=== PATIENT | female | born 1965 | race Caucasian/White ===

== ENCOUNTER 2018-06-06 06:14 | Inpatient (IN) | payer BC, SELFPAY ==
[2018-05-29 14:34] VITALS: BMI 33.4
[2018-06-06] VITALS (15 sets, daily range): BP systolic 91–144; BP diastolic 41–78; PULSE 61–112; RESP 11–21; TEMP 36.4–37.3; O2SAT 94–100; BMI 33.4
--- NOTE | 2018-06-06 | DI.RAD.S_ITS ---
PROCEDURE: XR LUMBAR SPINE 2-3V INDICATIONS: L4-5, L5-S1 TLIF TECHNIQUE: 2 views of the lumbar spine were acquired. COMPARISON: [facility], MR, MR LUMBAR SPINE WO CON, 05/14/2016, 14:37. FINDINGS: There is discectomy and posterior fusion at L4-L5 and L5-S1. Disc prostheses are noted. Pedicular screws and fusion rods are in appropriate position. IMPRESSION: Discectomy and posterior fusion at L4-L5 and L5-S1. Dictated by: Kaylee Morrison M.D. on 06/06/2018 at 13:42 Approved by: Kaylee Morrison M.D. on 06/06/2018 at 13:43
[2018-06-06] MEDS: LACTATED RINGERS 1,000 ML 42 ML IV ×2 (07:00→11:37)
--- NOTE | 2018-06-06 07:30 | PM.HP.1 ---
History of Present Illness Date Patient Seen: 06/06/18 Time Patient Seen: 07:31 Chief complaint: [id number] Narrative: 53-year-old female with low back pain and pain and numbness going down both legs more pain shooting down the back of the left leg as well as weakness in the left leg going up and down stairs. More tingling and feeling like spiders going down the right leg. She has had physical therapy and epidural injections with only temporary relief. Pain is sharp and stabbing. Patient History Medical History Arthritis (Acute) Cervical vertebral fusion (Acute) Cystocele (Acute) DDD (degenerative disc disease) (Acute) Hyperlipidemia (Acute) Lumbar spinal stenosis (Acute) Numbness (Acute) Obesity (Acute) Osteoarthritis (Acute) Vitamin D deficiency (Acute) Surgical History H/O cervical discectomy (Acute) H/O: (Acute) History of ankle surgery (Acute) History of appendectomy (Acute) History of bilateral tubal ligation (Acute) History of shoulder surgery (Acute) History of tonsillectomy (Acute) S/P epidural steroid injection (Acute) Family & Social History Family History: Reviewed 06/06/18 by Victor M Lazaro MD Social History: household members spouse Prior Living Arrangements Apartment/Condo Safety & Behavioral: Feels Safe in Current Yes Environment Been Physically Hurt or No Threatened By a Person Suicidal Ideation Description None Suicide Plan Description No Plan Tobacco & Substance use: Smoking Status Never smoker alcohol intake current alcohol intake frequency other Substance Use Type does not use Meds Home Medications Medication Instructions Recorded Confirmed Type MULTIVITAMIN (Multivitamin 1 cap PO EVERY DAY #0 06/18/10 05/29/18 History -) omega 8-flv-eqq-fish oil [Fish Oil] 2,000 mg PO DAILY #0 06/18/10 05/29/18 History [TUMERIC] 1 cap PO #0 05/13/17 History qebhmon-yidovuarcpnio-joxjbjqd 3 tab PO Q4-6H PRN 05/29/18 05/29/18 History [Excedrin Migraine] Allergies Allergy/AdvReac Type Severity Reaction Status Date / Time No Known Drug Allergies Allergy Unknown Unverified 05/29/18 15:04 [NO KNOWN DRUG ALLERGIES] dexamethasone AdvReac Severe Violent Verified 05/29/18 15:04 vomiting METAL Allergy Unknown UNSURE Uncoded 05/29/18 15:04 WHICH METAL,I CAN'T WEAR [place] Review of Systems Constitutional Constitutional: Denies chills and Denies fever(s) Cardiovascular Cardiovascular: Denies chest pain Respiratory Respiratory: Denies cough Exam Vital Signs (past 8 hours): - 06/06/18 07:01 Temperature 98.7 F Pulse Rate 70 Respiratory Rate 16 Blood Pressure 144/78 H Pulse Oximetry 98 Oxygen Delivery Method Room Air Const Orientation: alert and oriented x3 Resp Auscultation: clear to auscultation bilaterally Cardio Rate: regular rate Rhythm: regular rhythm Back/Spine/Pelvis Other: Tear across the lumbosacral junction and the left gluteals. 45? flexion, 10? of extension. 5/5 motor both lower extremities except for 4/5 left anterior tibialis and EHL. Decreased sensation lateral left leg and right foot Objective Imaging MRI - lumbar: My impression: MRI from 11/03/2017 shows central disc bulge with mild central stenosis at L1-2 with moderate bilateral foraminal narrowing. Mild right foraminal narrowing at L2-3. Mild bilateral foraminal narrowing L3-4. Mild central moderate bilateral foraminal narrowing L4-5. Moderate to severe bilateral foraminal narrowing L5-S1. Assessment & Plan Plan: Assessment/Plan Narrative: She has lumbar stenosis. She has failed conservative management and we are proceeding with surgical intervention. This will be a L4-5 and L5-S1 laminectomy to decompress her stenosis. Due to her foraminal stenosis, she will require facetectomies and fusion to stabilize afterwards we will do this with a TLIF at both levels. Risks and benefits were again discussed. Plan for surgery today.
--- NOTE | 2018-06-06 07:35 | P.HP_ITS ---
History of Present Illness Date Patient Seen: 06/06/18 Time Patient Seen: 07:31 Chief complaint: [id number] Narrative: 53-year-old female with low back pain and pain and numbness going down both legs more pain shooting down the back of the left leg as well as weakness in the left leg going up and down stairs. More tingling and feeling like spiders going down the right leg. She has had physical therapy and epidural injections with only temporary relief. Pain is sharp and stabbing. Patient History Medical History Arthritis (Acute) Cervical vertebral fusion (Acute) Cystocele (Acute) DDD (degenerative disc disease) (Acute) Hyperlipidemia (Acute) Lumbar spinal stenosis (Acute) Numbness (Acute) Obesity (Acute) Osteoarthritis (Acute) Vitamin D deficiency (Acute) Surgical History H/O cervical discectomy (Acute) H/O: (Acute) History of ankle surgery (Acute) History of appendectomy (Acute) History of bilateral tubal ligation (Acute) History of shoulder surgery (Acute) History of tonsillectomy (Acute) S/P epidural steroid injection (Acute) Family & Social History Family History: Reviewed 06/06/18 by Victor M Lazaro MD Social History: household members spouse Prior Living Arrangements Apartment/Condo Safety & Behavioral: Feels Safe in Current Yes Environment Been Physically Hurt or No Threatened By a Person Suicidal Ideation Description None Suicide Plan Description No Plan Tobacco & Substance use: Smoking Status Never smoker alcohol intake current alcohol intake frequency other Substance Use Type does not use Meds Home Medications Medication Instructions Recorded Confirmed Type MULTIVITAMIN (Multivitamin 1 cap PO EVERY DAY #0 06/18/10 05/29/18 History -) omega 5-vkw-rka-fish oil [Fish Oil] 2,000 mg PO DAILY #0 06/18/10 05/29/18 History [TUMERIC] 1 cap PO #0 05/13/17 History kpthmaf-thskvarqdmosv-ttczczbu 3 tab PO Q4-6H PRN 05/29/18 05/29/18 History [Excedrin Migraine] Allergies Allergy/AdvReac Type Severity Reaction Status Date / Time No Known Drug Allergies Allergy Unknown Unverified 05/29/18 15:04 [NO KNOWN DRUG ALLERGIES] dexamethasone AdvReac Severe Violent Verified 05/29/18 15:04 vomiting METAL Allergy Unknown UNSURE Uncoded 05/29/18 15:04 WHICH METAL,I CAN'T WEAR [place] Review of Systems Constitutional Constitutional: Denies chills and Denies fever(s) Cardiovascular Cardiovascular: Denies chest pain Respiratory Respiratory: Denies cough Exam Vital Signs (past 8 hours): - 06/06/18 07:01 Temperature 98.7 F Pulse Rate 70 Respiratory Rate 16 Blood Pressure 144/78 H Pulse Oximetry 98 Oxygen Delivery Method Room Air Const Orientation: alert and oriented x3 Resp Auscultation: clear to auscultation bilaterally Cardio Rate: regular rate Rhythm: regular rhythm Back/Spine/Pelvis Other: Tear across the lumbosacral junction and the left gluteals. 45? flexion , 10? of extension. 5/5 motor both lower extremities except for 4/5 left anterior tibialis and EHL. Decreased sensation lateral left leg and right foot Objective Imaging MRI - lumbar: My impression: MRI from 11/03/2017 shows central disc bulge with mild central stenosis at L1-2 with moderate bilateral foraminal narrowing. Mild right foraminal narrowing at L2-3. Mild bilateral foraminal narrowing L3-4. Mild central moderate bilateral foraminal narrowing L4-5. Moderate to severe bilateral foraminal narrowing L5-S1. Assessment & Plan Plan: Assessment/Plan Narrative: She has lumbar stenosis. She has failed conservative management and we are proceeding with surgical intervention. This will be a L4-5 and L5-S1 laminectomy to decompress her stenosis. Due to her foraminal stenosis, she will require facetectomies and fusion to stabilize afterwards we will do this with a TLIF at both levels. Risks and benefits were again discussed. Plan for surgery today.
--- NOTE | 2018-06-06 07:35 | PM.PREOP ---
Pre-operative Note Interval Note History & Physical reviewed/Exam performed by Physician: Yes Changes to H&P: No
[2018-06-06] MEDS: CEFAZOLIN 2 GM/100 ML FROZ.PIGGY IV ×2 (07:46→16:45)
--- NOTE | 2018-06-06 08:30 | SUR.OPER ---
Prone on spine table, head in foam head support, padded chest and pelvic supports, gel pad at knees, lower legs supported by pillows; nipples, genitalia and toes free of pressure, arms secured on foam padded arm boards at <90 degrees abduction. Tape over blanket at thigh secured to table.
[2018-06-06] MEDS: THROMBIN (BOVINE) 5,000 UNIT VIAL 5000 UNIT TOP (08:51)
[2018-06-06] MEDS: SODIUM CHLORIDE 0.9% 1,000 ML, GENTAMICIN 80 MG IRR ×2 (08:52→08:55)
[2018-06-06] MEDS: VANCOMYCIN 1,000 MG VIAL 1000 MG TOP (09:05)
[2018-06-06] MEDS: BUPIVACAINE 0.5% (PF) 4 ML, MORPHINE-PF 4 MG, BUTORPHANOL 1 MG, fentaNYL 100 MCG INJ (09:06)
--- NOTE | 2018-06-06 11:19 | PM.OP.1 ---
Operative Date/Time/Diagnoses Date of procedure: 06/06/18 Time of procedure: 11:19 Pre-op diagnosis: Lumbar stenosis with radiculopathy Post-op diagnosis: same Procedure & Clinicians Procedure: L4-5 TLIF (post/post innerbody fusion) with cage L5S1 TLIF (post/post innerbody fusion) with cage L4-L5 S1 screws Iliac crest bone graft aspirate L4-5 laminectomy L5-S1 laminectomy Use of microscope Placement of epidural catheter Same procedure as scheduled: Yes Indications: [age] year old female with intractable pain from stenosis. They had failed conservative management and requested operative intervention. Risks and benefits of surgery were discussed and appropriate consents were obtained. Surgeon: Victor M Lazaro Rolling Machine Tender: Susy Johnson Anesthesia Type: General Operative Notes Findings: None Closure Type: primary Specimen(s): none sent Implants & Drains: Nuvasive MAS Reline screws Globus Rise cage Applied: catheter Estimated Blood Loss (mL): 50 Blood products transfused: none Procedure in detail: The patient was brought to the operating room and intubated on the table. A time-out was performed. They were then rolled over to the well-padded José Luis table in the prone position. Preoperative antibiotics were given. The back was prepped and draped in the standard sterile fashion. Using fluoroscopy, a 5 cm longitudinal incision was made to the left of the midline. We used Bovie to come down to and split the lumbodorsal fascia. Using fluoroscopy and monitoring, we then percutaneously placed Jamshidi needles down the pedicles of L4, L5, and S1 on the left side. These were changed out to guidewires and then we tapped and then placed the NuVasive MAS Precept screw shanks. We then opened up the retractors and used Bovie to clear up the posterolateral gutter as well as medially along the lamina to the spinous processes. A bur was used to decorticate the transverse processes. We brought in the microscope. Using a combination of bur and Kerrison rongeurs, a laminectomy was performed from the left side. We cleared over past the midline and carefully depressed the dura until we were able to decompress the opposite side. We cleared out the neural foramen which was exceedingly tight we had to perform a facetectomy to get this adequately decompressed. This completed the laminectomy at L5-S1. We then began the TLIF prep. A complete facetectomy was performed on this side at L5-S1. We carefully cleaned up the remainder of the foramen until we could easily retract the exiting root as well as clearing medially below the dura and expose the disc space. The disc was prepped with bipolar and then an annulotomy was performed. We performed a diskectomy using a combination of paddles, patricia, pituitaries, and curettes. We then filled the disc space with Osteocel bone graft. We then placed the 7 x 30 mm globus Rise cage under fluoroscopy and then filled this in with more bone graft. This completed the posterior interbody fusion portion of the TLIF at L5-S1. We then moved up to L4-5. Again a laminectomy was performed at this level to decompress the spinal canal and the foramen. We had to do a facetectomy to remove the large facet overgrowth compressing the exiting nerve root. There was a large facet cyst here that was adherent that had to be carefully retracted off adding much more complexity and time for the decompression, making the laminectomy separate and distinct from the approach for the fusion. Once the decompression was done at this level, we carefully retracted the dura medially. A scalpel used to perform an annulotomy. We used paddles, Patricia, curettes, and pituitaries to perform a complete diskectomy at L4-5. This was packed with bone graft and then an 8 x 30 mm globus Rise cage was placed and expanded under fluoroscopy. More bone graft was backfilled. This completed the posterior interbody portion of the fusion at L4-5. We then placed the screw heads, main, and locked down the set screws. The wound was copiously irrigated. A small stab incision was made over the PSIS. We used a Jamshidi needle to aspirate several mL of bone marrow from the pelvis. This was mixed with the remaining Osteocell and combined with all of the locally harvested bone graft and placed in the posterolateral gutter for the posterior fusion of the TLIF at L4-5 and L5-S1. An epidural catheter was then placed in the spinal canal by carefully depressing the dura and advancing it 6 cm cephalad under the remaining lamina without resistance. The muscle fascia was closed. The catheter was then injected with a solution containing 4 mL of 0.5% Marcaine, 1 mg Stadol, 4 mg Duramorph, and 100 mcg of fentanyl. This was injected without resistance and the catheter was pulled. We then went to the opposite side. Again using fluoroscopy, a 5 cm incision was made and Bovie was used to come down to split the fascia. Using neural monitoring and fluoroscopy, Jamshidi needles were advanced down the pedicles of L4, L5, and S1 on the right side. These were switched over guidewires, tapped, and screws placed. We then placed a main and locked the set screws on this side. The wound was irrigated. The fascia was closed. Vancomycin powder was placed in the wounds. The superficial and skin were closed. A sterile dressing was placed. The patient was then rolled over extubated and brought to recovery room without complications. Complications: none Condition: stable Disposition: PACU Plan for aftercare: Inpatient. Up with therapy.
[2018-06-06] MEDS: fentaNYL 100 MCG/2 ML INJ 50 MCG IV (11:53)
--- NOTE | 2018-06-06 12:02 | SUR.PHASEI ---
stable pacu stay, medicated with fentanyl for pain. no nausea.
--- NOTE | 2018-06-06 12:15 | SUR.PHASEI ---
pt stated no need for further pain meds, pt transfered to [id number] under the care of rosalind.
--- NOTE | 2018-06-06 12:39 | SUR.OPER ---
Louisa sher on upper body on high
[2018-06-06] MEDS: LACTATED RINGERS 1,000 ML 125 ML IV ×2 (13:14→21:52)
[2018-06-06] MEDS: METOCLOPRAMIDE 10 MG/2 ML INJ IV (14:15)
--- NOTE | 2018-06-06 14:45 | PT.IPTN ---
Current Diagnoses Spinal stenosis, lumbar region with neurogenic claudication (06/06/18) Surgery Performed Operation Date: 06/06/18 07:45 Actual Procedures p L4-5, L5-S1 Laminectomy & Instru. fusion w/bone graft - Victor M Lazaro MD Physical Therapy Treatment Note M3 PT-IP Subjective Start: 06/06/18 14:44 Freq: NEEDED Status: Active Protocol: Document 06/06/18 14:45 AB (Rec: 06/06/18 14:45 AB [id number]) Subjective Physical Therapy Visit Type Notes checked on pt but pt stated that she is trying to keep her nausea under control first and not ready to move with therapy at this time. pt agreed for PT to check on pt later on today.
--- NOTE | 2018-06-06 17:01 | PC.NURSE ---
Addendum entered by Lorie Han R.N. 06/06/18 22:17: Pt resting quietly through evening. Stable post op course. Denies discomfort Alfaro cath patent clear yellow urine. Call light w/in reach, bed alarm on for pt safety. Continue w/plan of care. Original Note: Pt resting quietly at this time. Denies discomfort at this time. Lungs clear, SpO2 98% RA. Dsg to back CDI. Alfaro cath paten clear urine. Call light w/in reach, bed alarm on for pt safety.
[2018-06-06] MEDS: DOCUSATE 100 MG CAPSULE PO (21:52)
[2018-06-06] MEDS: CELECOXIB 200 MG CAPSULE PO (21:52)
[2018-06-06] MEDS: GABAPENTIN 300 MG CAPSULE PO (21:53)
[2018-06-06] MEDS: SENNOSIDES 8.6 MG TABLET 17.2 MG PO (21:53)
[2018-06-06] MEDS: HYDROCODONE/ACET 5/325 TABLET 1 TAB PO (23:59)
[2018-06-07] MEDS: CEFAZOLIN 2 GM/100 ML FROZ.PIGGY IV
[2018-06-07 05:00] VITALS: BP 105/59; PULSE 72; RESP 16; TEMP 37.1; O2SAT 98
[2018-06-07] MEDS: HYDROCODONE/ACET 5/325 TABLET 1 TAB PO ×3 (05:53→23:30)
[2018-06-07 06:46] LABS: Hematocrit 36.7 % (36-46); Hemoglobin 12.4 g/dL (12.0-16.0)
--- NOTE | 2018-06-07 07:39 | PM.PNPO.1 ---
Subjective Date Patient Seen: 06/07/18 Time Patient Seen: 07:39 Interval history: Hospital day 2, postop day 1 following L4-5, L5-S1 laminectomy, TLIF, cage, posterior screw fixation by Dr. Lazaro. Patient states she has not had much rest. States having sharp pain firing down her leg when she lays on her back. Leg numbness has improved. She has not been out of bed yet. No physical therapy yet. Alfaro catheter in place. She and her live in [place]. They have rented a home on [facility] for postop period. Patient states she has had GI upset taking dexamethasone but she is able to tolerate prednisone. Exam Vital Signs (past 8 hours): - 06/07/18 05:00 Temperature 98.8 F Pulse Rate 72 Respiratory Rate 16 Blood Pressure 105/59 L Pulse Oximetry 98 Oxygen Delivery Method Room Air Oxygen Flow Rate 0 Narrative Exam Narrative: Alert, oriented no acute distress lying in bed on her right side. Back. Dressing to lumbar area is dry without drainage or inflammation. Legs. No calf pain or swelling. Pulses symmetrical. Good sensation to lower legs symmetrical. Good strength on foot dorsiflexion plantar flexion. Objective Labs Result Diagrams: 06/07/18 06:25 Labs: Laboratory Results - last 24 hr 06/07/18 06:25 Hgb 12.4 Hct 36.7 Assessment & Plan Post-op Postoperative Procedures Operation Date: 06/06/18 07:45 Actual Procedures Side Surgeon p L4-5, L5-S1 Laminectomy & Instru. fusion w/bone graft Victor M Lazaro MD Plan: Will start patient on prednisone 40 mg this morning and then 20 mg b.i.d. starting at 1800 today. We will see if this helps with her back and leg symptoms. Observe for improvement in function. DC Alfaro catheter when she is more active. Anticipate discharge to home in the next 1-2 days if stable. Quality VTE Deep Vein Thrombosis/Pulmonary Embolism Present on Admission: No
--- NOTE | 2018-06-07 07:43 | P.PN_ITS ---
Subjective Date Patient Seen: 06/07/18 Time Patient Seen: 07:39 Interval history: Hospital day 2, postop day 1 following L4-5, L5-S1 laminectomy , TLIF, cage, posterior screw fixation by Dr. Lazaro. Patient states she has not had much rest. States having sharp pain firing down her leg when she lays on her back. Leg numbness has improved. She has not been out of bed yet. No physical therapy yet. Alfaro catheter in place. She and her live in [place]. They have rented a home on [facility] for postop period. Patient states she has had GI upset taking dexamethasone but she is able to tolerate prednisone. Exam Vital Signs (past 8 hours): - 06/07/18 05:00 Temperature 98.8 F Pulse Rate 72 Respiratory Rate 16 Blood Pressure 105/59 L Pulse Oximetry 98 Oxygen Delivery Method Room Air Oxygen Flow Rate 0 Narrative Exam Narrative: Alert, oriented no acute distress lying in bed on her right side. Back. Dressing to lumbar area is dry without drainage or inflammation. Legs. No calf pain or swelling. Pulses symmetrical. Good sensation to lower legs symmetrical. Good strength on foot dorsiflexion plantar flexion. Objective Labs Result Diagrams: 06/07/18 06:25 Labs: Laboratory Results - last 24 hr 06/07/18 06:25 Hgb 12.4 Hct 36.7 Assessment & Plan Post-op Postoperative Procedures Operation Date: 06/06/18 07:45 Actual Procedures Side Surgeon p L4-5, L5-S1 Laminectomy & Instru. fusion w/bone graft Victor M Lazaro MD Plan: Will start patient on prednisone 40 mg this morning and then 20 mg b.i.d. starting at 1800 today. We will see if this helps with her back and leg symptoms. Observe for improvement in function. DC Alfaro catheter when she is more active. Anticipate discharge to home in the next 1-2 days if stable. Quality VTE Deep Vein Thrombosis/Pulmonary Embolism Present on Admission: No
[2018-06-07 08:00] VITALS: BP 113/58; PULSE 75; RESP 16; TEMP 36.8; O2SAT 93
[2018-06-07] MEDS: METOCLOPRAMIDE 10 MG/2 ML INJ IV (09:03)
[2018-06-07] MEDS: KETOROLAC 30 MG/ML VIAL IV (09:03)
--- NOTE | 2018-06-07 09:40 | PT.IIE ---
Current Diagnoses Spinal stenosis, lumbar region with neurogenic claudication (06/06/18) Surgery Performed Operation Date: 06/06/18 07:45 Actual Procedures p L4-5, L5-S1 Laminectomy & Instru. fusion w/bone graft - Victor M Lazaro MD Surgical History (Last Reviewed 06/06/18 @ 07:32 by Victor M Lazaro MD) H/O cervical discectomy (Acute) H/O: (Acute) History of ankle surgery (Acute) History of appendectomy (Acute) History of bilateral tubal ligation (Acute) History of shoulder surgery (Acute) History of tonsillectomy (Acute) S/P epidural steroid injection (Acute) Medical History (Last Reviewed 06/06/18 @ 13:58 by Monse Larios) Arthritis (Acute) Cervical vertebral fusion (Acute) Cystocele (Acute) DDD (degenerative disc disease) (Acute) Hyperlipidemia (Acute) Lumbar spinal stenosis (Acute) Numbness (Acute) Obesity (Acute) Osteoarthritis (Acute) Vitamin D deficiency (Acute) Physical Therapy Inpatient Evaluation/Re-Eval M1 PT/OT-IP Prior Functional Status Start: 06/06/18 14:44 Freq: NEEDED Status: Active Protocol: Document 06/07/18 09:40 AB (Rec: 06/07/18 12:21 AB [id number]) Medical Review Prior Functional Status Medical History Reviewed Yes Communication able to make need known Mobility and Gait stated that she is independent with all mobilities and ambulation without AD Social History Household Members spouse Living Arrangements Apartment/Condo Number of Floors (Floors) One Floor Number of Stairs To Enter/Railing? pt lives in [place] and will stay on a rented house in [facility] upon D/C for ~ 21/2 weeks. Home info regarding rented house. 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 spouse works as well but has taken days off to assist pt. pt has no AD/equipment M2 PT-IP Current Condition Start: 06/06/18 14:44 Freq: NEEDED Status: Active Protocol: Document 06/07/18 09:40 AB (Rec: 06/07/18 12:21 AB [id number]) Physical Therapy Current Condition Current Condition Evaluation Date 06/07/18 Treatment Diagnosis s/p L4-5, L5S1 TLIF/lami; difficulties in walking Onset Date 06/06/18 Precautions Lumbar Precautions Log Roll No Twisting Limit Bending Lifting Restriction of 10 lbs Gait Belt above Incisional Area M3 PT-IP Subjective Start: 06/06/18 14:44 Freq: NEEDED Status: Active Protocol: Document 06/07/18 09:40 AB (Rec: 06/07/18 12:21 AB [id number]) Subjective Physical Therapy Visit Type Type Initial Evaluation Visit Start Time 09:40 Visit Stop Time 10:07 Total Visit Minutes 27 Number of ENGINE ASSEMBLY SUPERVISOR Visits 0 Physical Therapy Visit Comments Patient Comments pt agreeable to get out of bed Therapy Pain Assessment Pain When Pain Assessed At Rest Pain Present Pain Present Pain Reported Location Back Intensity 7 Scale Used Numeric (1 - 10) Pain Management Techniques Re-positioning Timing of Activity with Medications M4 PT-IP Mobility and Gait Start: 06/06/18 14:44 Freq: NEEDED Status: Active Protocol: Document 06/07/18 09:40 AB (Rec: 06/07/18 12:21 AB [id number]) PT-Bed Mobility Assessment Rolling Type of Rolling Log Rolling Level of Assist Standby Assistance Supine to Sit Supine to Sit Standby Assistance 1 Person Assistance Scooting Scooting to Edge of Bed Standby Assistance PT-Transfer Assessment Sit to and From Stand Sit to and from Stand Contact Guard Assistance 1 Person Assistance Use of Upper Extremities Equipment Transfer Assistive Device Bed Rail Front Wheeled Walker Orthotic/Prosthetic Devices or Brace: No Transfers Transfer Destination Toilet Transfer Technique pt ambulated to the toilet using FWW Transfer Ability Level of Assist Contact Guard Assistance Comments Mobility Comments BP supine: 120/55 sitting on EOB: 129/56 after ambulation: 136/70 Gait Assessment Gait Gait Assistance Required: Contact Guard Assist Distance (Feet) 40 Able to Maintain Weight Bearing Status Yes During Gait Assistive Devices Assistive Device Gait Belt Front Wheeled Walker Orthotic/Prosthetic Devices or Brace: No Gait Deviations General Gait Pattern Decreased Stride Length Decreased Feet Clearance Factors Limiting Gait Function Factors Limiting Gait Function Decreased Activity Tolerance Decreased Strength Limited Range of Motion Pain Poor Balance Comments Gait Comments Attempted ambulation in hallway but pt got nauseated with (+) emesis after ambulating for ~ 40ft using FWW CGA requested to use the toilet and ambulated to the toilet using FWW CGA. BP sittin/70 PT-Balance Assessment Sitting Balance and Reactions Static Sitting Balance Ability Good Dynamic Sitting Balance Ability Good Standing Balance and Reactions Static Standing Balance Ability Fair Dynamic Standing Balance Ability Fair Device Used FWW M5 PT-IP Objective Assessments Start: 06/06/18 14:44 Freq: NEEDED Status: Active Protocol: Document 06/07/18 09:40 AB (Rec: 06/07/18 12:21 AB [id number]) Orientation Orientation/Cognition Level of Alertness Alert Orientation Name Age Birthday Month Date Year Day of Week Place Situation Language Function Ability No Deficits Noted Safety Awareness Understands Safety Issues Memory Description No Deficits Noted Gross Range of Motion Lower Extremity ROM Assessment Within Functional Limits Strength Lower Extremity Strength Assessment Within Functional Limits Coordination Assessment Gross Coordination Gross Coordination WNL Sensation Assessment Sensation Gross Sensation WNL Muscle Tone Muscle Tone WNL Yes M6 PT-IP Treatment Start: 06/06/18 14:44 Freq: NEEDED Status: Active Protocol: Document 06/07/18 09:40 AB (Rec: 06/07/18 12:21 AB [id number]) Physical Therapy Treatment Education Education Provided Precautions Weight Bearing Status Post-Op Packet Safety M7 PT-IP Assessment and Plan Start: 06/06/18 14:44 Freq: NEEDED Status: Active Protocol: Document 06/07/18 09:40 AB (Rec: 06/07/18 12:21 AB [id number]) PT Summary Assessment and Plan Potential Rehabilitation Potential Good Status of Condition at Evaluation Evolving Summary Impairments Pain ROM Strength Balance Coordination Sensation Bed Mobility Transfers Gait Activity Tolerance Assessment Summary pt rquiring CGA to min A with mobility and has decrease activity tolerance due to c/o nausea and unable to ambulate farther. pt plans to go home with spouse to assist. pt will likely progress during hospital stay and may go home when medically stable. Goals Bed Mobility Goal Independent Transfer Goal Independent Front Wheeled Walker Gait Goal Independent Front Wheel Walker Gait Distance 200 Days to Meet Goals 3 Frequency of Treatment Frequency Of Treatment Twice a Day Treatment Plan Physical Therapy Treatment Plan Bed Mobility Training Transfer Training Gait Training Therapeutic Exercise Balance Retraining Post Op Education Discharge Planning Hot or Cold Pack Neuromuscular Re-ed Coordination Retraining Manual Therapy Other Recommendations and Next Treatment ambulation Focus Recommendations To Nursing Amount of Assist Needed 1 Person Assist Discharge Recommendations PT Discharge Recommendations Home with Assistance Equipment Needed for Home Before FWW Discharge
--- NOTE | 2018-06-07 10:41 | CM.DPC ---
Addendum entered by Melvi Munguia 06/07/18 11:43: Order obtained for FWW for home use. Therapy aware and will provide to patient prior to discharge. Original Note: DCP/continued: Reviewed chart. Met with patient and spouse/Derek at bedside explained CM/SW role. Patient alert and oriented, just finished ambulating in gonzalez with spouse and PIPE FITTER MAINTENANCE at time of visit. Patient reports that she resides in [place] and plans to return there in approximately 2 weeks. In the meantime, she and her spouse have rented place in .. Patient came to [facility] from [place] for surgery with Dr. Lazaro because he has done previous surgeries on her and she has been very happy. Patient hopes to d/c within the next 24-48hrs. Patient reports that she will need walker prior to discharge. Notified patient that CM department will check with therapy and obtain order if recommended prior to discharge. Patient appreciative. P: Home when stable. Patient plans to stay in [place] until after her 2week appointment with Dr. Lazaro and then return to [place]. Discharge Planning/Care Management Advanced directive, confirm from FAMILY Start: 06/06/18 13:09 Freq: Q24H Status: Active Protocol: Document 06/06/18 13:09 CM (Rec: 06/06/18 13:32 CM [id number]) Advance Directive, confirm on record Time 13:31 Person contacted Spouse Copy received Yes Advanced directive available on record Yes Document 06/07/18 07:50 CM (Rec: 06/07/18 08:58 CM [id number]) Advance Directive, confirm on record Time 13:31 Person contacted Spouse Copy received Yes Advanced directive available on record Yes CM Discharge Assessment Start: 06/06/18 14:46 Freq: Status: Active Protocol: Document 06/06/18 14:47 KJS (Rec: 06/06/18 14:51 KJS [id number]) Discharge Planning Assessment Assigned Director Of Enterprise Strategy FABRICE Verma Advance Directives? Yes Advance Directives on File Yes History Provided By Patient Family Member Has Patient been admitted in last 30 No days? Prior Living Arrangements Apartment/Condo Household Members spouse Comment Unclear at this time. Discharge Plan Home Comment Briefly reviewed chart. Patient is a 53yr old female admitted to . for Laminectomy performed by Dr. Lazaro. No PCP listed. Primary payor is 1) BS out of state. NAVAL ENGINEER attempted to meet with patient to introduce role and discuss d/c planning. Patient remains in surgery at time of visit. Patient's address listed is [facility]? Will request department in person assessment for d/c planning needs on 06-07-18. Review Status In Process Please Provide Date Initial DC 06/06/18 Assessment Was Performed Next Review Type Continued Stay Review Document 06/07/18 10:41 KJS (Rec: 06/07/18 10:41 KJS [id number]) Discharge Planning Assessment Assigned Director Of Enterprise Strategy FABRICE Verma Advance Directives? Yes Advance Directives on File Yes History Provided By Patient Family Member Has Patient been admitted in last 30 No days? Prior Living Arrangements Apartment/Condo Household Members spouse Comment Unclear at this time. Discharge Plan Home Comment Briefly reviewed chart. Patient is a 53yr old female admitted to [facility] for Laminectomy performed by Dr. Lazaro. No PCP listed. Primary payor is 1) [employer]BS out of state. NAVAL ENGINEER attempted to meet with patient to introduce role and discuss d/c planning. Patient remains in surgery at time of visit. Patient's address listed is [facility]? Will request department in person assessment for d/c planning needs on 06-07-18. Review Status In Process Please Provide Date Initial DC 06/06/18 Assessment Was Performed Next Review Type Continued Stay Review Pre-Anesthesia Assessment Start: 05/26/18 14:35 Freq: Status: Complete Protocol: Document 05/29/18 14:34 VLDahiana (Rec: 05/29/18 14:47 VLDahiana [id number]) Pre-Anesthesia Assessment Patient Also Known As Sharma (AKA) Patient Information Reviewed Via Chart Review Phone Assessment Assessment Completed With Patient Primary Care Provider Allie, Seen Specialist in Last 12 Months Yes Specialist Seen Orthopedist Primary Language Greek Clinical Program Manager Required No Height 172.72 cm Weight 99.79 kg Body Mass Index (BMI) 33.4 Hearing Ability Normal Visual Impairment Partially Limited Visual Assist Glasses Dentition Type Teeth, Natural Present Barriers to Learning Visual Hx Anesthesia Reactions Yes: N&V, Req Scopalamine Patch Hx Family Anesthesia Reaction No Hx Malignant Hyperthermia No Hx Blood Transfusions No Anesthesia Review Requested No Hi Teacher No alcohol intake current alcohol intake frequency other Alcohol Intake Frequency Other: 1/month Smoking Status Never smoker Substance Use Type does not use Pain Present Denied Pain Musculoskeletal Symptoms Abnormal Gait Back Pain Difficulty Walking Joint Pain Joint Stiffness Joint Swelling Limited Range of Motion Muscle Cramps Muscle Spasms Muscle Weakness Neck Pain Numbness Radiating Pain into Limb Tingling History of Falling (Recent or History of Yes ) Patient is completely paralyzed or No completely immobile Ambulatory Aid None/bed rest/nurse assist Gait/Transferring Normal/bedrest/immobile Mental Status Oriented to own ability Is patient on oxygen? No Does patient have MEDELLIN/SOB No Hx Sleep Apnea No Will Bring CPAP/BIPAP DOS No Currently Taking a Beta True No Can You Climb a Flight of Stairs Without Yes SOB Hx Chest Pain No Hx SOB No Hx Syncope or Dizziness No Anti-Coagulant Therapy No Has a Detective Precinct No Cardiac Testing No Hx Pacemaker/ICD No Pacemaker Rep Required? No Cardiac Clearance Received Not Applicable Diet Type At Home Regular dysphagia No Comment goes down without me knowing it - I pay attention Urinary Catheter Present No Hx Urinary Self Catheterization No Diabetes No Patient No Lactating No Hx Drug Resistant Organism No Presence of External or Internal Medical Yes: Cervical hardware Devices Have you traveled outside the [facility] in the last 30 days? Marital Status Lives With spouse Prior Living Arrangements Apartment/Condo Number of Stairs To Enter/Railing? 19 stairs into front door w/ handrail Will stay in [place] for 2 weeks before flying home Support System Spouse Does the Patient Have Assistance After Yes Surgery Patient Discharge Plan Description Other Comment Lives in [place]; will stay w/ family post-op; Airbnb in [place] Feels Safe in Current Environment Yes Been Physically Hurt or Threatened By a No Person in Current Environment Do you have thoughts of harming yourself None or others? Are you currently considering suicide? No Do you have a plan to hurt yourself or No Plan others? Do You Have Any Spiritual Beliefs That No May Affect Your HC Choices? Do You Have Any Cultural Practices That No May Affect Your HC Choices? Spiritual Referral None Comment Sabianism Who Can We Speak to About Patient's Care Family & Friends Identifying Code for Release of Patient Declined Information Health Care Proxy/Next of Kin Juan Carlos Connor Health Care Proxy Emergency Contact Name Derek Horan - Emergency Contact Advance Directives? Yes Advance Directives on File Yes Requested Patient Bring Advanced Yes Directives DOS Comment might be on her papers, will bring DOS PAC Instructions Assistance for 24 hours post- op Do not shave/clip surgical site Durable medical equipment Medications to take/avoid Nasal antibiotic No ETOH/petroleum product on skin DOS NPO Ortho class Post-op transportation Pre-op antibiotic Pre-surgical wash Sensory aids Sturdy shoes/comfortable clothes Do not bring valuables and remove jewelry PAC Comment Son is a nurse; lives in [place]
[2018-06-07] MEDS: predniSONE 20 MG TABLET 40 MG PO (10:51)
[2018-06-07] MEDS: MULTIVITAMIN 1 TABLET 1 TAB PO (10:52)
[2018-06-07] MEDS: CELECOXIB 200 MG CAPSULE PO ×2 (10:52→21:03)
[2018-06-07] MEDS: FISH OIL 1,000 MG CAPSULE 2000 MG PO (10:52)
[2018-06-07] MEDS: DOCUSATE 100 MG CAPSULE PO ×2 (10:52→20:47)
--- NOTE | 2018-06-07 11:23 | PC.NURSE ---
Patient was nauseated throughout the morning. Nurse administered Reglan and Toradol 0900 IV, vomiting episode at 0800 and a second episode at 1035. Oral medications held r/t nausea/vomiting. Nausea reassessed at 1050, patient expressed that nausea was improved and no further episodes of vomiting. Oral medications were given.
[2018-06-07 12:05] VITALS: BP 127/61; PULSE 67; RESP 16; TEMP 37.2; O2SAT 97
--- NOTE | 2018-06-07 14:20 | OT.IP.EVAL ---
Current Diagnoses Spinal stenosis, lumbar region with neurogenic claudication (06/06/18) Surgery Performed Operation Date: 06/06/18 07:45 Actual Procedures p L4-5, L5-S1 Laminectomy & Instru. fusion w/bone graft - Victor M Lazaro MD Past Medical History (Last Reviewed 06/06/18 @ 13:58 by Monse Larios) Arthritis (Acute) Cervical vertebral fusion (Acute) Cystocele (Acute) DDD (degenerative disc disease) (Acute) Hyperlipidemia (Acute) Lumbar spinal stenosis (Acute) Numbness (Acute) Obesity (Acute) Osteoarthritis (Acute) Vitamin D deficiency (Acute) Surgical History (Last Reviewed 06/06/18 @ 07:32 by Victor M Lazaro MD) H/O cervical discectomy (Acute) H/O: (Acute) History of ankle surgery (Acute) History of appendectomy (Acute) History of bilateral tubal ligation (Acute) History of shoulder surgery (Acute) History of tonsillectomy (Acute) S/P epidural steroid injection (Acute) Occupational Therapy Inpatient Evaluation/Re-Eval M1 PT/OT-IP Prior Functional Status Start: 06/06/18 14:44 Freq: NEEDED Status: Active Protocol: Document 06/07/18 16:10 PJM (Rec: 06/07/18 16:24 PJ [id number]) Medical Review Prior Functional Status Medical History Reviewed Yes Diet/Fluid Consistency Regular Communication WNL Mobility and Gait Pt stated that she is independent with all mobilities and ambulation without AD Activities of Daily Living and IADL's Pt stated she is independent with all self care, IADLS, driving. does assist PRN with pipe line gauger due to pt's back pain. 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 She has a sit/stand desk at her work station. Prior Functional Level (Other details) Pt lives in [place], [place] and is renting house here for 3 weeks with no stairs. Social History Household Members spouse Living Arrangements Apartment/Condo Number of Floors (Floors) One Floor Number of Stairs To Enter/Railing? 19 with railing Home Environment High Toilet Tub/Shower Employment Status Nurse Executive Employed Additional Social History Comment Supportive can assist pt PRN before and after work. M2 OT-IP Current Condition Start: 06/07/18 16:10 Freq: Status: Active Protocol: Document 06/07/18 16:10 PJM (Rec: 06/07/18 16:24 PJM [id number]) Occupational Therapy Current Condition Current Condition Evaluation Date 06/07/18 Treatment Diagnosis decreased self are, functional mobility s/p L4-5, L5-S1 lami /fusion Diagnosis Onset Date 06/06/18 Post Operative Precautions Lumbar Precautions Log Roll No Twisting Limit Bending Lifting Restriction of 10 lbs Gait Belt above Incisional Area M3 OT- IP Subjective and Pain Start: 06/07/18 16:10 Freq: Status: Active Protocol: Document 06/07/18 16:10 PJM (Rec: 06/07/18 16:24 PJM [id number]) OT- Subjective Occupational Therapy Visit Type Type Initial Evaluation Visit Start Time 14:00 Visit Stop Time 14:20 Notes observing this session . Occupational Therapy Visit Comments Patient/Caregiver Goals to return to work in 6 weeks with less back pain OT Pain Assessment Pain When Pain Assessed After Treatment Pain Present Pain Present Pain Reported Location Back Intensity 3 Scale Used Numeric (1 - 10) Description Aching Acute Management Techniques Distraction Timing of Activity with Medications M4 OT- IP ADL's Start: 06/07/18 16:10 Freq: Status: Active Protocol: Document 06/07/18 16:10 PJM (Rec: 06/07/18 16:24 PJM [id number]) OT AXR-[id number] General Evaluation Self-Feeding Ability Independent OT ADL-Grooming Comments OT Grooming Comments did not occur this session OT ADL-Oral Care Comments Oral Care Comments did not occur this session OT ADL-Dressing General Eval Lower Body Dressing Ability Standby Assistance Comments OT Dressing Comments Pt does not need sock aid as can assist PRN; pharmacy technician provided. Pt declines long shoe horn. OT ADL-Toileting General Evaluation Toileting Ability Standby Assistance Comments OT Toileting Comments pt has bidet at home; does not need toilet paper aid OT ADL-Bathing Bathing Type Bathing Type Shower General Evaluation Bathing Ability Minimal Assistance Devices Bathing Equipment Long Handled Sponge or [place] Comments OT Bathing Comments long bath sponge provided; pt bathed with nursing with min- assist per ACCOUNTING MACHINE MECHANIC M5 OT- IP IADL's Start: 06/07/18 16:10 Freq: Status: Active Protocol: Document 06/07/18 16:10 PJM (Rec: 06/07/18 16:24 PJ [id number]) OT-Instrumental Activities of Daily Living Deficits IADL Deficits Identified Deficits Home Safety Awareness Awareness of Need for Assistance at Home Good Awareness Ability to Problem Solve Emergency Able to Problem Solve Situations Medication Management Medication Management No Deficits Identified Money Management Money Management No Deficits Identified Meal Preparation Meal Preparation Caregiver Provides Assist Meal Preparation Comments can assist PRN until pt able Warp Spooler Warp Spooler Caregiver Provides Assist Warp Spooler Comments can assist PRN until pt able Driving Driving Caregiver Provides Assist Driving Comments to assist until pt able M6 OT- IP Functional Cognition Start: 06/07/18 16:10 Freq: Status: Active Protocol: Document 06/07/18 16:10 PJM (Rec: 06/07/18 16:24 PJ [id number]) Cognitive Factors Limiting Selfcare Function Cognitive Ability Level of Alertness Alert Patient Orientation Name Age Birthday Month Date Year Day of Week Place Situation Attention Span Ability Capable of Focused Attention Capable of Sustained Attention Ability to Follow Commands Able to Follow One Step Commands Able to Follow Multi-Step Commands Memory Description No Deficits Noted Safety Awareness No Deficits Noted Problem Solving Ability No deficits Noted Executive Function Ability No Deficits Noted Abstract Thinking Ability No Deficits Noted Cognitive Comments Cognitive Assessment Comments Pt mildly drowsy from pain meds, but asking appropriate questions about adapted ADL techniques. OT- Vision and Hearing OT- Hearing Assessment OT- Hearing Assessment WFL OT- Vision Assessment Visual Acuity WFL M7 OT- IP Mobility and Balance Start: 06/07/18 16:10 Freq: Status: Active Protocol: Document 06/07/18 16:10 PJM (Rec: 06/07/18 16:24 PJ [id number]) OT-Transfer Assessment Comments Mobility Comments see P.T. notes; pt seen up in chair this session OT- Gait Assessment Comments Gait Ability Comments see P.T. notes; pt seen up in chair this session OT- Balance Assessment Comments Other Balance Tests/Deviations/Treatment see P.T. notes; pt seen up in : chair this session M8 OT- IP Objective Assessments Start: 06/07/18 16:10 Freq: Status: Active Protocol: Document 06/07/18 16:10 PJM (Rec: 06/07/18 16:24 PJ [id number]) OT Gross Range of Motion Upper Extremity Range of Motion Assessment Within Functional Limits ROM Impairments Pt had right recent shoulder surgery with good recovery and AROM WFL. OT Strength Upper Extremity Strength Assessment Within Functional Limits Hand Executive Chairman Strength Hand Dominance Right OT- Coordination Assessment Comments Coordination Comments BUE WFL OT-Muscle Tone Assessment Muscle Tone WNL Yes OT Sensation Assessment Comments Summary Comments BUE WNL per pt Edema Edema Absent M9 OT- IP Assessment and Plan Start: 06/07/18 16:10 Freq: Status: Active Protocol: Document 06/07/18 16:10 PJM (Rec: 06/07/18 16:24 PJM [id number]) OT Summary Assessment and Plan Potential Rehabilitation Potential Excellent Analytic Complexity at Evaluation Low Summary OT Impairments Pain Assessment Summary Low complexity OT assessment completed with emphasis on self care skills within lumbar spine precautions. Pt currently has performance deficits in activity tolerance , lower body dressing and showering. taking 3 weeks off work to assist pt PRN. Plan 1 additional OT visit prior to d/c to practice lower body dressing and grooming with emphasis on body mechanics and lumbar precautions. Goals Grooming Goal Independent Dressing Goal Independent Bathing Goal Standby Assistance Shower Transfer Goal Standby Assistance Patient/Caregiver Education Goal Demonstrate Post-Op Precautions Demonstrate Energy Conservation and Pacing Caregiver Independent Assisting Patient Days to Meet Goals 2 Frequency of Treatment Frequency Of Treatment Once a Day Treatment Plan OT Treatment Plan ADL Training Functional Mobility Patient/Family Education Discharge Planning Discharge Recommendations OT Discharge Recommendations Home with Assistance Home Equipment Needs provided pharmacy technician and long bath sponge at pt request
--- NOTE | 2018-06-07 15:02 | PT.IPTN ---
Current Diagnoses Spinal stenosis, lumbar region with neurogenic claudication (06/06/18) Surgery Performed Operation Date: 06/06/18 07:45 Actual Procedures p L4-5, L5-S1 Laminectomy & Instru. fusion w/bone graft - Victor M Lazaro MD Physical Therapy Treatment Note M2 PT-IP Current Condition Start: 06/06/18 14:44 Freq: NEEDED Status: Active Protocol: Document 06/07/18 09:40 AB (Rec: 06/07/18 12:21 AB [id number]) Physical Therapy Current Condition Current Condition Evaluation Date 06/07/18 Treatment Diagnosis s/p L4-5, L5S1 TLIF/lami; difficulties in walking Onset Date 06/06/18 Precautions Lumbar Precautions Log Roll No Twisting Limit Bending Lifting Restriction of 10 lbs Gait Belt above Incisional Area M3 PT-IP Subjective Start: 06/06/18 14:44 Freq: NEEDED Status: Active Protocol: Document 06/07/18 14:49 SA (Rec: 06/07/18 15:02 SA [email or web address]) Subjective Physical Therapy Visit Type Type Treatment Note Visit Start Time 13:02 Visit Stop Time 12:28 Total Visit Minutes 26 Number of LANDSCAPING SUPERVISOR Visits 1 Physical Therapy Visit Comments Patient Comments Pt up in chair with present, agreeable to PT. Therapy Pain Assessment Pain When Pain Assessed During Mobility Pain Present Pain Present Pain Reported Location Back Intensity 3 Scale Used Numeric (1 - 10) Pain Management Techniques Apply Cold Modification of Treatment Re-positioning Timing of Activity with Medications M4 PT-IP Mobility and Gait Start: 06/06/18 14:44 Freq: NEEDED Status: Active Protocol: Document 06/07/18 14:49 SA (Rec: 06/07/18 15:02 SA [email or web address]) PT-Bed Mobility Assessment Rolling Type of Rolling Log Rolling Level of Assist Standby Assistance Supine to Sit Supine to Sit Standby Assistance 1 Person Assistance Sit to Supine Sit to Supine Standby Assistance Scooting Scooting to Edge of Bed Standby Assistance PT-Transfer Assessment Sit to and From Stand Sit to and from Stand Contact Guard Assistance 1 Person Assistance Equipment Transfer Assistive Device Front Wheeled Walker Orthotic/Prosthetic Devices or Brace: No Transfers Transfer Destination Chair Toilet Transfer Technique Stand Step Pivot Transfer Ability Level of Assist Contact Guard Assistance Comments Mobility Comments Pt with no c/o dizziness or nausea. BP 116/72. SBA with supine<>sit, Min cues for log roll technique. Pt able to recite 3/3 precautions and understands them well. Gait Assessment Gait Gait Assistance Required: Contact Guard Assist Distance (Feet) 400 Able to Maintain Weight Bearing Status Yes During Gait Assistive Devices Assistive Device Gait Belt Front Wheeled Walker Orthotic/Prosthetic Devices or Brace: No Gait Deviations General Gait Pattern Decreased Stride Length Factors Limiting Gait Function Factors Limiting Gait Function Decreased Activity Tolerance Decreased Strength Comments Gait Comments Pt with improved gait quality and distance, no symptoms present and low pain level. Pt manages FWW well with good LE foot clearance. PT-Balance Assessment Sitting Balance and Reactions Static Sitting Balance Ability Good Dynamic Sitting Balance Ability Good M5 PT-IP Objective Assessments Start: 06/06/18 14:44 Freq: NEEDED Status: Active Protocol: Document 06/07/18 09:40 AB (Rec: 06/07/18 12:21 AB [id number]) Orientation Orientation/Cognition Level of Alertness Alert Orientation Name Age Birthday Month Date Year Day of Week Place Situation Language Function Ability No Deficits Noted Safety Awareness Understands Safety Issues Memory Description No Deficits Noted Gross Range of Motion Lower Extremity ROM Assessment Within Functional Limits Strength Lower Extremity Strength Assessment Within Functional Limits Coordination Assessment Gross Coordination Gross Coordination WNL Sensation Assessment Sensation Gross Sensation WNL Muscle Tone Muscle Tone WNL Yes M6 PT-IP Treatment Start: 06/06/18 14:44 Freq: NEEDED Status: Active Protocol: Document 06/07/18 14:49 SA (Rec: 06/07/18 15:02 SA [email or web address]) Physical Therapy Treatment Exercises Exercises Ankle Pumps Gluteal Sets Education Education Provided Precautions Weight Bearing Status Post-Op Packet Safety M7 PT-IP Assessment and Plan Start: 06/06/18 14:44 Freq: NEEDED Status: Active Protocol: Document 06/07/18 14:49 SA (Rec: 06/07/18 15:02 SA [email or web address]) PT Summary Assessment and Plan Potential Rehabilitation Potential Good Status of Condition at Evaluation Evolving Summary Assessment Summary Pt progressing well with decreased pain, no nausea and improved functional mobility. Understands precautions and present and will assist her upon d/c, receptive to caregiver training. Frequency of Treatment Frequency Of Treatment Twice a Day Recommendations To Nursing Amount of Assist Needed 1 Person Assist Discharge Recommendations PT Discharge Recommendations Home with Assistance Equipment Needed for Home Before FWW issued. Discharge
[2018-06-07 15:15] VITALS: BP 135/71; PULSE 61; RESP 16; TEMP 36.9; O2SAT 97
--- NOTE | 2018-06-07 17:34 | PC.NURSE ---
Addendum entered by Lorie Han R.N. 06/07/18 21:13: Pt up ad garima. Denies any further discomfort. Amb. in hallway. HL intact/patent. Stable post op course, Probable D/C in morning. Call light w/in reach. Continue w/plan of care. Original Note: Pt resting at intervals. Med at 1711 w/[place] for discomfort. Lungs clear, SpO2 97% RA HL intact/patent. Dsg to back CDI. Call light w/in reach, bed alarm on for pt safety. Stable post op course.
[2018-06-07 19:36] VITALS: BP 97/53; PULSE 71; RESP 16; TEMP 36.8; O2SAT 97
[2018-06-07] MEDS: GABAPENTIN 300 MG CAPSULE PO (20:46)
[2018-06-07] MEDS: SENNOSIDES 8.6 MG TABLET 17.2 MG PO (20:47)
[2018-06-07] MEDS: predniSONE 20 MG TABLET PO (20:48)
[2018-06-07 23:30] VITALS: BP 125/61; PULSE 64; RESP 16; TEMP 36.8; O2SAT 94
[2018-06-08 04:45] VITALS: BP 123/67; PULSE 68; RESP 16; TEMP 36.9; O2SAT 98
[2018-06-08] MEDS: HYDROCODONE/ACET 5/325 TABLET 1 TAB PO ×2 (05:23→09:37)
[2018-06-08 08:00] VITALS: BP 126/71; PULSE 62; RESP 16; TEMP 36.6; O2SAT 99
--- NOTE | 2018-06-08 08:04 | PM.PNPO.1 ---
Subjective Date Patient Seen: 06/08/18 Time Patient Seen: 08:04 Interval history: Doing great today. Independent with mobility. Minimal pain good control with medication. Exam Vital Signs (past 8 hours): - 06/08/18 04:45 Temperature 98.4 F Pulse Rate 68 Respiratory Rate 16 Blood Pressure 123/67 Pulse Oximetry 98 Oxygen Delivery Method Room Air Oxygen Flow Rate 0 Const Orientation: alert and oriented x3 Back/Spine/Pelvis Other: 5/5 motor both lower extremities. CDI Objective Labs Result Diagrams: 06/07/18 06:25 Assessment & Plan Post-op Postoperative Procedures Operation Date: 06/06/18 07:45 Actual Procedures Side Surgeon p L4-5, L5-S1 Laminectomy & Instru. fusion w/bone graft Victor M Lazaro MD she is doing great. Discharged home today. Quality VTE Deep Vein Thrombosis/Pulmonary Embolism Present on Admission: No
--- NOTE | 2018-06-08 08:05 | PM.DS.1 ---
History of Present Illness Chief complaint: [id number] Narrative: 53-year-old female with low back pain and pain and numbness going down both legs more pain shooting down the back of the left leg as well as weakness in the left leg going up and down stairs. More tingling and feeling like spiders going down the right leg. She has had physical therapy and epidural injections with only temporary relief. Pain is sharp and stabbing. Discharge Providers Date of admission: 06/06/18 06:14 Consults: 06/06/18 12:32 Consult to Occupational Therapy Evaluate & Treat Comment: Physician Instructions: Evaluate and treat Consult to Physical Therapy Evaluate & Treat Comment: Physician Instructions: Evaluate and Treat 06/07/18 11:41 Consult to Home Health Routine Comment: For home use Reason For Exam: FWW Discharge provider: Victor M Lazaro MD Discharge Date: 06/08/18 Summary Discharge Diagnosis: Lumbar stenosis with radiculopathy Hospital Course: She had nausea over the 1st night but then that resolved by the next morning. She was progressing very well with physical therapy. Independent with ambulation by date of discharge. Status at Discharge Functional status at discharge: uses cane/walker Overall status at discharge: patient is progressing back to baseline Exam Vital Signs (past 8 hours): - 06/08/18 04:45 Temperature 98.4 F Pulse Rate 68 Respiratory Rate 16 Blood Pressure 123/67 Pulse Oximetry 98 Oxygen Delivery Method Room Air Oxygen Flow Rate 0 Const Orientation: alert and oriented x3 Back/Spine/Pelvis Other: CDI. 5/5 motor both lower extremities. Objective Labs Result Diagrams: 06/07/18 06:25 Discharge Plan Discharge Plan Patient Disposition: Home Discharge comment: Follow-up 1.5 weeks Discharge Med Rec/Prescriptions Prescriptions: New hydrocodone-acetaminophen 5-325 mg Tablet See Label Instructions .ROUTE .COMPLEX PRN (Reason: Pain, Moderate (4-6)) Qty: 40 RF: 0 hydroxyzine pamoate 25 mg Capsule 25 mg PO Q4HR PRN (Reason: spasms) Qty: 20 RF: 0 celecoxib [Celebrex] 200 mg Capsule 200 mg PO BID PRN (Reason: pain) Qty: 60 RF: 0 Continue omega 8-[id number]-fish oil [Fish Oil] 1,000 mg (120 mg-180 mg) Capsule 2,000 mg PO DAILY Qty: 0 RF: 0 multivitamin Capsule 1 cap PO DAILY Qty: 0 RF: 0 turmeric 1 cap PO DAILY Qty: 0 RF: 0 [id number]-zgfgjlwavhofl-rdifgdzd [Excedrin Migraine] 250-250-65 mg Tablet 3 tab PO Q4-6H PRN (Reason: Headache) RF: 0 Provider Discharge Instructions Activity: limited BLT 10 lbs max Skin/Wound/Dressing Care Dressing: may change dressing and shower POD #5 Discharge Data Attending Provider: Victor M Lazaro Admit Date/Time: 06/06/18 06:14 Quality VTE Deep Vein Thrombosis/Pulmonary Embolism Present on Admission: No
--- NOTE | 2018-06-08 09:10 | OT.IP.TRT ---
Current Diagnoses Spinal stenosis, lumbar region with neurogenic claudication (06/06/18) Surgery Performed Operation Date: 06/06/18 07:45 Actual Procedures p L4-5, L5-S1 Laminectomy & Instru. fusion w/bone graft - Victor M Lazaro MD Occupational Therapy Treatment Note M3 OT- IP Subjective and Pain Start: 06/07/18 16:10 Freq: Status: Active Protocol: Document 06/08/18 09:10 PJM (Rec: 06/08/18 15:36 PJM [id number]) OT- Subjective Occupational Therapy Visit Type Type Administrative Note Visit Start Time 09:10 Notes Checked on pt and she was already dressed in street clothes with assist from and had completed toileting and grooming independently. She declines to shower here. Pt did not feel she needs any additional OT services and is waiting for d/c home this AM. No charge.
[2018-06-08] MEDS: FISH OIL 1,000 MG CAPSULE 2000 MG PO (09:38)
[2018-06-08] MEDS: DOCUSATE 100 MG CAPSULE PO (09:38)
[2018-06-08] MEDS: CELECOXIB 200 MG CAPSULE PO (09:38)
[2018-06-08] MEDS: MULTIVITAMIN 1 TABLET 1 TAB PO (09:38)
[2018-06-08] MEDS: predniSONE 20 MG TABLET PO (09:39)
--- NOTE | 2018-06-08 09:45 | PT.IPTN ---
Current Diagnoses Spinal stenosis, lumbar region with neurogenic claudication (06/06/18) Surgery Performed Operation Date: 06/06/18 07:45 Actual Procedures p L4-5, L5-S1 Laminectomy & Instru. fusion w/bone graft - Victor M Lazaro MD Physical Therapy Treatment Note M2 PT-IP Current Condition Start: 06/06/18 14:44 Freq: NEEDED Status: Active Protocol: Document 06/07/18 09:40 AB (Rec: 06/07/18 12:21 AB [id number]) Physical Therapy Current Condition Current Condition Evaluation Date 06/07/18 Treatment Diagnosis s/p L4-5, L5S1 TLIF/lami; difficulties in walking Onset Date 06/06/18 Precautions Lumbar Precautions Log Roll No Twisting Limit Bending Lifting Restriction of 10 lbs Gait Belt above Incisional Area M3 PT-IP Subjective Start: 06/06/18 14:44 Freq: NEEDED Status: Active Protocol: Document 06/08/18 09:37 SA (Rec: 06/08/18 09:45 [id number]) Subjective Physical Therapy Visit Type Type Treatment Note Visit Start Time 09:21 Visit Stop Time 09:36 Total Visit Minutes 15 Number of COMPUTATIONAL GENETICIST Visits 2 Physical Therapy Visit Comments Patient Comments Pt up in chair and ready for PT this AM. Patient Goals Plans to d/c home with today. Therapy Pain Assessment Pain When Pain Assessed During Mobility Pain Present Pain Present Pain Reported Location Back Intensity 2 Scale Used Numeric (1 - 10) Pain Management Techniques Apply Cold Modification of Treatment Re-positioning Timing of Activity with Medications M4 PT-IP Mobility and Gait Start: 06/06/18 14:44 Freq: NEEDED Status: Active Protocol: Document 06/08/18 09:37 SA (Rec: 06/08/18 09:45 [email or web address]) PT-Bed Mobility Assessment Rolling Type of Rolling Log Rolling Level of Assist Independent Supine to Sit Supine to Sit Independent Sit to Supine Sit to Supine Independent Scooting Scooting to Edge of Bed Independent Scooting Up and Down in Bed Independent PT-Transfer Assessment Sit to and From Stand Sit to and from Stand Standby Assistance 1 Person Assistance Equipment Transfer Assistive Device Front Wheeled Walker Orthotic/Prosthetic Devices or Brace: No Transfers Transfer Destination Chair Toilet Transfer Technique Stand Step Pivot Transfer Ability Level of Assist Standby Assistance Comments Mobility Comments Pt feeling good this AM with low pain level and improving mobility and gait. Ind with bed mobility, pt able to demonstrated Log roll technique to R and L with no VCs and IND. Gait Assessment Gait Gait Assistance Required: Standby Assistance Distance (Feet) 300 Able to Maintain Weight Bearing Status Yes During Gait Assistive Devices Assistive Device Gait Belt Front Wheeled Walker Orthotic/Prosthetic Devices or Brace: No Gait Deviations General Gait Pattern Decreased Stride Length Factors Limiting Gait Function Factors Limiting Gait Function Decreased Activity Tolerance Decreased Strength Comments Gait Comments Pt demonstrates good postural awareness with gait, safe use of FWW and denies increased spinal pain with gait. Stair Climbing Assessment Evaluation Level of Assist On Stairs Standby Assistance Devices Stair Climbing Assistive Devices Left Railing Right Railing Technique/Endurance Stair Climbing Direction Ascend and Descend Stair Climbing Technique Step Over Step Number of Steps Climbed 3 Query Text: Stair Climbing Set # Repetitions (reps) 4 Comments Stair Climbing Comments Pt with step through gait pattern and no LOB, limited UE support on B rails and SBA with Min cues for technique and good safety demonstrated. PT-Balance Assessment Sitting Balance and Reactions Static Sitting Balance Ability Good Dynamic Sitting Balance Ability Good M5 PT-IP Objective Assessments Start: 06/06/18 14:44 Freq: NEEDED Status: Active Protocol: Document 06/07/18 09:40 AB (Rec: 06/07/18 12:21 AB [id number]) Orientation Orientation/Cognition Level of Alertness Alert Orientation Name Age Birthday Month Date Year Day of Week Place Situation Language Function Ability No Deficits Noted Safety Awareness Understands Safety Issues Memory Description No Deficits Noted Gross Range of Motion Lower Extremity ROM Assessment Within Functional Limits Strength Lower Extremity Strength Assessment Within Functional Limits Coordination Assessment Gross Coordination Gross Coordination WNL Sensation Assessment Sensation Gross Sensation WNL Muscle Tone Muscle Tone WNL Yes M6 PT-IP Treatment Start: 06/06/18 14:44 Freq: NEEDED Status: Active Protocol: Document 06/08/18 09:37 SA (Rec: 06/08/18 09:45 [id number]) Physical Therapy Treatment Exercises Exercises Ankle Pumps Gluteal Sets Education Education Provided Precautions Weight Bearing Status Post-Op Packet Safety M7 PT-IP Assessment and Plan Start: 06/06/18 14:44 Freq: NEEDED Status: Active Protocol: Document 06/08/18 09:37 SA (Rec: 06/08/18 09:45 SA [id number]) PT Summary Assessment and Plan Potential Rehabilitation Potential Good Status of Condition at Evaluation Stable Summary Assessment Summary Pt ready for d/c home with , demonstrates good safety with use of FWW and gait and manages stairs well. Ind with bed mobility. Frequency of Treatment Frequency Of Treatment Twice a Day Recommendations To Nursing Amount of Assist Needed 1 Person Assist Discharge Recommendations PT Discharge Recommendations Home with Assistance Equipment Needed for Home Before FWW issued. Discharge
== END 2018-06-08 10:31 | disposition home or self-care (01) | DRG 455 ==
PROVIDERS: Admitting Provider Orthopaedic Surgery; Visit Provider Orthopaedic Surgery
PROC: 0SG00AJ Fusion of Lumbar Vertebral Joint with Interbody Fusion Device, Posterior Approach, Anterior Column, Open Approach (ICD-10-PCS; principal; 2018-06-06 07:45)
DX: M48.061 Spinal stenosis, lumbar region without neurogenic claudication (principal); M54.16 Radiculopathy, lumbar region; R11.0 Nausea
CPT/HCPCS: 36415; 72100; 76000; 85014; 85018; 94762; 97116; 97162; 97165; 97530; 99406; C1776; C1788; A9270; J0330; J0595; J0690; J1885; J2250; J2274; J2405; J2704; J2765; J3010